=== PATIENT | male | born 1955 | race Caucasian/White ===

== ENCOUNTER 2016-11-14 09:42 | Day surgery (SDC) | payer OTHER ==
[2016-11-14] MEDS ORDERED: LIDOCAINE 1% 20 ML VIAL (10MG/ML) FOR IV START INTRADERMA PRN (10:12)
[2016-11-14] MEDS ORDERED: LACTATED RINGERS 1,000 ML IV SCH (10:12)
[2016-11-14 10:20] VITALS: RESP 16; TEMP 97.4
[2016-11-14] MEDS ORDERED: LIDOCAINE 1% INJ 10MG/ML (20 ML MDV) ONE (10:29)
[2016-11-14] MEDS ORDERED: PROPOFOL 10 MG/ML 20 ML VIAL IV ONE (10:29)
--- NOTE | 2016-11-14 10:41 | P.PCN ---
Date of Procedure: 11/14/16 Procedure(s) Performed: BRIEF HISTORY: Patient is a 61-year-old pleasant white male, scheduled for an elective colonoscopy as a part of screening for colorectal neoplasia. The patient states that he had the sigmoid resection 2 years ago for recurrent sigmoid diverticulitis with diverticular stricture. He presently is asymptomatic. PROCEDURE PERFORMED: Colonoscopy. PREOPERATIVE DIAGNOSIS: Screening for colorectal neoplasia. IV sedation per Anesthesia. PROCEDURE: After informed consent was obtained, the patient, was brought into the endoscopy unit. IV conscious sedation was administered by Anesthesia under continuous monitoring. Digital rectal examination was normal. Initially the Olympus CF-160 flexible video colonoscope was then inserted in the rectum, gradually advanced into the cecum without any difficulty. Careful examination was performed as the scope was gradually being withdrawn. Ileocecal valve and the appendiceal orifice were visualized and appeared normal. Prep was excellent. Mucosa of the cecum, ascending colon, transverse colon, descending colon, and rectum appeared normal. The surgical anastomosis was located at 26 cm from the anal verge which appeared normal. Retroflexion was performed in the rectum and no lesions were seen. The patient tolerated the procedure well. IMPRESSION: Normal-appearing colon from rectum to cecum with no evidence of colorectal neoplasia . RECOMMENDATIONS: Findings of this examination were discussed with the patient last his family. He was advised to have a repeat screening colonoscopy in 10 years.
[2016-11-14 11:04] VITALS: PULSE 88
[2016-11-14 11:15] VITALS: BP 149/93
== END 2016-11-14 11:37 | disposition home or self-care (01) ==
LOC: ORWHC2ENDO 09:42
PROVIDERS: ATTEND Internal Medicine Gastroenterology
DX: Z12.11 Encounter for screening for malignant neoplasm of colon (principal); Z98.0 Intestinal bypass and anastomosis status; Z87.19 Personal history of other diseases of the digestive system; I25.10 Atherosclerotic heart disease of native coronary artery without angina pectoris; Z95.5 Presence of coronary angioplasty implant and graft; Z87.891 Personal history of nicotine dependence; G40.909 Epilepsy, unspecified, not intractable, without status epilepticus; Z79.01 Long term (current) use of anticoagulants; Z79.02 Long term (current) use of antithrombotics/antiplatelets; Z79.899 Other long term (current) drug therapy; Z88.5 Allergy status to narcotic agent
CPT/HCPCS: J2001; J2704; G0105

== ENCOUNTER 2019-04-28 12:00 | Emergency (ER) | payer OTHER ==
--- NOTE | 2019-04-28 12:35 | ED ---
General Adult HPI - General Chief complaint: Extremity Problem,Nontraumatic Stated complaint: leg swelling Time Seen by Provider: 04/28/19 12:27 Source: patient, RN notes reviewed Mode of arrival: wheelchair Limitations: no limitations - History of Present Illness Initial comments: 63-year-old male with a past medical history of CAD, hyperlipidemia, COPD presents to the emergency department for a chief complaint of left leg pain. Patient states that he saw his primary care provider who recommended he get an ultrasound. Patient states that he has had a cramping bruising sensation in his left calf and posterior knee for about 3 weeks. States they did x-rays and everything looked normal. States he is on Plavix without a history of blood clots. Denies any fevers or chills. Denies pain with flexion of the knee. Denies any erythema or edema of the right lower extremity. Denies any groin pain.Patient has no other complaints at this time including shortness of breath, chest pain, abdominal pain, nausea or vomiting, headache, or visual changes. - Related Data Home Medications Medication Instructions Recorded Confirmed Rosuvastatin Calcium [Crestor] 40 mg PO DAILY 10/28/14 04/28/19 Aspirin [Adult Low Dose Aspirin EC] 81 mg PO DAILY 11/09/16 04/28/19 Clopidogrel Bisulfate [Plavix] 75 mg PO DAILY 04/28/19 04/28/19 Nitroglycerin [Nitro-Dur 0.6MG/Hr 1 patch TRANSDERM DAILY 04/28/19 04/28/19 Patch] levETIRAcetam [Keppra] 500 mg PO Q12HR 04/28/19 04/28/19 Allergies Allergy/AdvReac Type Severity Reaction Status Date / Time codeine AdvReac Itching Verified 04/28/19 12:45 STEROIDS Allergy Unknown Uncoded 04/28/19 12:45 Review of Systems ROS Statement: Those systems with pertinent positive or pertinent negative responses have been documented in the HPI. ROS Other: All systems not noted in ROS Statement are negative. Past Medical History Past Medical History: Coronary Artery Disease (CAD), Hyperlipidemia, Osteoarthritis (OA) Additional Past Medical History / Comment(s): COPD;EMPHYSEMA History of Any Multi-Drug Resistant Organisms: None Reported, C-DIFF Date of last positivie culture/infection: 2015 MDRO Source:: cdiff Past Surgical History: Bowel Resection, Heart Catheterization With Stent Additional Past Surgical History / Comment(s): 5 Heart Cath with stents; Cataracts Past Anesthesia/Blood Transfusion Reactions: No Reported Reaction Date of Last Stent Placement:: 2008 Past Psychological History: No Psychological Hx Reported Smoking Status: Current some day smoker Past Alcohol Use History: None Reported Past Drug Use History: None Reported - Past Family History Father Family Medical History: Deep Vein Thrombosis (DVT) Sister(s) Family Medical History: Cancer General Exam Limitations: no limitations General appearance: alert, in no apparent distress Head exam: Present: atraumatic, normocephalic, normal inspection Eye exam: Present: normal appearance, PERRL, EOMI. Absent: scleral icterus, conjunctival injection, periorbital swelling ENT exam: Present: normal exam, mucous membranes moist Neck exam: Present: normal inspection, full ROM. Absent: tenderness, meningismus, lymphadenopathy Respiratory exam: Present: normal lung sounds bilaterally. Absent: respiratory distress, wheezes, rales, rhonchi, stridor Cardiovascular Exam: Present: regular rate, normal rhythm, normal heart sounds. Absent: systolic murmur, diastolic murmur, rubs, gallop, clicks Extremities exam: Present: normal inspection, full ROM (Full range of motion of the right lower extremity), tenderness (Mild tenderness noted in the right calf.), normal capillary refill (Capillary refill is 2 seconds, DP pulse 2+ in the right lower extremity), other (Sensation intact in the right lower extremity). Absent: pedal edema, joint swelling (No edema or erythema noted of the right knee), calf tenderness Course Vital Signs 04/28/19 04/28/19 12:03 13:30 Temperature 98.2 F Pulse Rate 98 Respiratory 18 16 Rate Blood Pressure 133/92 O2 Sat by Pulse 100 Oximetry Medical Decision Making - Medical Decision Making Lane is a 63 -year-old male who presents to the emergency department for right leg pain. Patient has had this ongoing for about 3 weeks. Exam is unremarkable. Vitals are stable. Ultrasound is a negative test for DVT in the right leg. Patient ambulatory. Neurovascular status intact. At this time recommended follow-up with orthopedics as well as primary care. Recommended ret urning here if he has any worsening symptoms. Disposition Clinical Impression: Leg pain, right Disposition: HOME SELF-CARE Condition: Good Instructions (If sedation given, give patient instructions): Leg Pain (ED) Additional Instructions: Please follow up with primary care and orthopedics in one to 2 days. Take Motrin and Tylenol for pain. Return to the emergency department if you have worsening symptoms. Is patient prescribed a controlled substance at d/c from ED?: No Referrals: [facility],Clinic [Primary Care Provider] - 1-2 days Tom Butt MD [STAFF PHYSICIAN] - 1-2 days Time of Disposition: 14:04
[2019-04-28 13:31] VITALS: RESP 16
--- NOTE | 2019-04-28 13:44 | US ---
EXAMINATION TYPE: US venous doppler duplex LE RT DATE OF EXAM: 04/28/2019 12:34 PM COMPARISON: NONE CLINICAL HISTORY: 63-year-old male Pain. Swelling right leg SIDE PERFORMED: Right TECHNIQUE: The lower extremity deep venous system is examined utilizing real time linear array sonog barbara with graded compression, doppler sonography and color-flow sonography. FINDINGS: VESSELS IMAGED: External Iliac Vein (EIV) Common Femoral Vein Deep Femoral Vein Greater Saphenous Vein * Femoral Vein Popliteal Vein Small Saphenous Vein * Proximal Calf Veins (* superficial vessels) Right Leg: Negative for DVT IMPRESSION: No evidence for DVT within the right lower extremity imaged from the groin to the upper calf.
[2019-04-28 14:14] VITALS: BP 144/75; PULSE 88; TEMP 97.9
== END 2019-04-28 14:05 | disposition home or self-care (01) ==
LOC: EC 12:00
DX: M79.604 Pain in right leg (principal); I25.10 Atherosclerotic heart disease of native coronary artery without angina pectoris; E78.5 Hyperlipidemia, unspecified; F17.200 Nicotine dependence, unspecified, uncomplicated; Z79.82 Long term (current) use of aspirin; Z79.02 Long term (current) use of antithrombotics/antiplatelets; Z79.899 Other long term (current) drug therapy; Z88.5 Allergy status to narcotic agent; Z88.8 Allergy status to other drugs, medicaments and biological substances; Z95.5 Presence of coronary angioplasty implant and graft
CPT/HCPCS: 99283

== ENCOUNTER → 2024-01-06 | Outpatient (CLI) | payer OTHER ==
--- NOTE | 2024-01-06 15:44 | CT ---
EXAMINATION: CT SCAN OF THE CHEST WITHOUT AND WITH WITH INTRAVENOUS CONTRAST DATE OF EXAM: 01/06/2024 3:35 PM HISTORY: Follow-up for pulmonary nodule. COMPARISON: None. TECHNIQUE: CT examination of the chest was performed without and following the intravenous administra tion of iodinated contrast. CT dose lowering techniques were used, to include: automated exposure con trol, adjustment for patient size, and/or use of iterative reconstruction. 100 mL of Isovue 300 was g iven intravenously. FINDINGS: CHEST: Lungs: Mild centrilobular emphysema seen with an upper lobe predominance. Scattered mild inflammator y airway changes are otherwise noted. There is no focal consolidation. No suspicious pulmonary nodule s are identified. Pleura: Normal. Mediastinum And Denise: Normal. Cardiovascular: No significant cardiomegaly. Moderate coronary artery calcifications. Chest Wall: Normal. Upper Abdomen: Normal. MUSCULOSKELETAL: Normal. IMPRESSION: 1. No acute abnormality in the chest. 2. Mild emphysema and inflammatory airway changes. 3. Moderate coronary artery calcifications. 4. No significant pulmonary or nodules detected on this examination.
== END | disposition home or self-care (01) ==
LOC: RADCTMAIN 15:04
PROVIDERS: ATTEND Family Medicine
DX: J43.2 Centrilobular emphysema (principal); I25.10 Atherosclerotic heart disease of native coronary artery without angina pectoris; R91.1 Solitary pulmonary nodule; J98.8 Other specified respiratory disorders
CPT/HCPCS: 71270; Q9967